=== PATIENT | female | born 1970 | race Hispanic/Latino ===

== ENCOUNTER 2017-02-05 12:16 | Emergency (ER) | payer BC ==
[2017-02-05 12:35] VITALS: BMI 29.7
--- NOTE | 2017-02-05 13:04 | C.PDOC ---
History Of Present Illness 46 y/o female presents to the ED complaining of shaking,and back pain. Patient reports she had a panic attack at work. She reports history of chronic back pain states she was injured over a year ago at work and just started working again in October. She reports that she has been taking Motrin for pain with no relief and is requesting stronger pain medication. Patient also reports that she has history of myasthenia gravis and she sees Dr. Galarza for her medical care. At this time patient denies any weakness, numbness, urinary symptoms, abdominal pain, fever, chills, or other complaints. Time Seen by Provider: 02/05/17 12:41 Chief Complaint (Nursing): Anxiety History Per: Patient History/Exam Limitations: no limitations Onset/Duration Of Symptoms: Mins, Gradual, Persistent Current Symptoms Are (Timing): Still Present Recent travel outside of the [place]: No Past Medical History Reviewed: Historical Data, Nursing Documentation, Vital Signs Vital Signs: Last Vital Signs Temp 98.2 F 02/05/17 14:29 Pulse 80 02/05/17 14:29 Resp 20 02/05/17 14:29 BP 128/84 02/05/17 14:29 Pulse Ox 99 02/05/17 14:37 - Medical History PMH: Back Problems, HTN Other PMH: Myasthenia Gravis Surgical History: Tonsillectomy (1998) Other Surgeries: Hysterectomy - [facility] Procedures INJECT/INFUSE NEC (05/26/05) Family History: States: No Known Family Hx - Social History Hx Tobacco Use: No Hx Alcohol Use: No Hx Substance Use: No - Immunization History Hx Influenza Vaccination: No (Not UTD) Hx Pneumococcal Vaccination: No (Not UTD) Review Of Systems Except As Marked, All Systems Reviewed And Found Negative. Constitutional: Negative for: Fever, Chills Cardiovascular: Negative for: Chest Pain Respiratory: Positive for: Shortness of Breath. Negative for: SOB with Excertion Gastrointestinal: Negative for: Abdominal Pain Genitourinary: Negative for: Dysuria Musculoskeletal: Positive for: Back Pain Neurological: Negative for: Weakness, Numbness Psych: Positive for: Anxiety Physical Exam - Physical Exam Appears: Non-toxic, No Acute Distress, Other (mild hyperventilation) Skin: Normal Color, Warm, Dry Head: Atraumatic, Normacephalic Oral Mucosa: Moist Neck: Normal ROM, Supple Chest: Symmetrical Cardiovascular: Rhythm Regular Respiratory: Normal Breath Sounds, No Rales, No Rhonchi, No Wheezing Gastrointestinal/Abdominal: Normal Exam, Soft, No Tenderness Back: No Vertebral Tenderness, Other (mild paralumbar tenderness) Extremity: Normal ROM, No Swelling Neurological/Psych: Oriented x3, Normal Speech, Normal Cognition, Normal Motor, Normal Sensation ED Course And Treatment ECG: Interpreted By Me ECG Rhythm: Sinus Rhythm ECG Interpretation: No Acute Changes Rate From EC O2 Sat by Pulse Oximetry: 99 (ra) Pulse Ox Interpretation: Normal - Radiology CXR: Interpreted by Me CXR Interpretation: Yes: No Acute Disease Progress Note: treated with toradol 30 mg IV and xanax 0.25 mg PO. On re- evaluation lungs clear, feeling better, in no distress Reassessment Condition: Improved Medical Decision Making Medical Decision Making: Plan: * EKG * CXR * Toradol, Xanax Disposition Counseled Patient/Family Regarding: Studies Performed, Diagnosis, Need For Followup - Disposition Referrals: Rosa Galarza MD [Staff Provider] - Disposition: HOME/ ROUTINE Disposition Time: 14:20 Condition: STABLE Additional Instructions: Follow up with PMD Return to ED if any increase symptoms Instructions: Generalized Anxiety Disorder (ED), Anxiety (ED) - POA Present On Arrival: None - Clinical Impression Clinical Impression: Anxiety - PA / [employer] / Resident Statement MD/DO has reviewed & agrees with the documentation as recorded. - Scribe Statement The provider has reviewed the documentation as recorded by the Scribe (Marely Farley) All medical record entries made by the Scribe were at my direction and personally dictated by me. I have reviewed the chart and agree that the record accurately reflects my personal performance of the history, physical exam, medical decision making, and the department course for this patient. I have also personally directed, reviewed, and agree with the discharge instructions and disposition.
--- NOTE | 2017-02-05 14:09 | RAD ---
HISTORY: Shortness of breath COMPARISON: 03/13/2014 TECHNIQUE: Chest PA and lateral FINDINGS: LUNGS: The lungs are clear of. PLEURA: No significant pleural effusion identified. No pneumothorax apparent. CARDIOVASCULAR: Normal. OSSEOUS STRUCTURES: No significant abnormalities. VISUALIZED UPPER ABDOMEN: Normal. OTHER FINDINGS: None. IMPRESSION: No active pulmonary disease.
[2017-02-05 14:30] VITALS: BP 128/84; PULSE 80; RESP 20; TEMP 98.2
[2017-02-05 14:37] VITALS: O2SAT 99
--- NOTE | 2017-02-06 21:30 | CARD ---
APPROVED REPORT EKG Measurement Heart [id number] IN [id number] [id number] <Conclusion> Normal sinus rhythm Minimal voltage criteria for LVH, may be normal variant Nonspecific T wave abnormality Abnormal ECG
== END 2017-02-05 14:40 | disposition home or self-care (01) ==
LOC: C.ER 12:16
DX: F41.9 Anxiety disorder, unspecified (principal)
CPT/HCPCS: 71020; 93005; 96372; 99283; J1885

== ENCOUNTER 2017-03-10 14:37 | Emergency (ER) | payer BC ==
[2017-03-10 14:37] VITALS: BMI 29.7
[2017-03-10 14:53] VITALS: RESP 18
--- NOTE | 2017-03-10 15:52 | C.PDOC ---
History Of Present Illness A 46 year old female presents, with a past medical history that includes Anxiety , is BIBA with complaints of right sided lower back pain that developed today while working. 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 Patient denies any falls/trauma, fever, chills, abd. pain, nausea, vomiting, diarrhea, dysuria, hematuria, incontinence, saddle anesthesia, denies weakness, sensory or vascular deficist to B/L LEs. At the time of evaluation, appears in pain. 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 Last RX: 03/04/17 Alprazolam 0.5mg#90 by , 02/25/17 Alprazolam 0.25mg#15 , 02/17/17 Zolpidem 10mg#30 , so on. Time Seen by Provider: 03/10/17 15:27 Chief Complaint (Nursing): Back Pain History Per: Patient History/Exam Limitations: no limitations Onset/Duration Of Symptoms: Hrs Current Symptoms Are (Timing): Still Present Quality Of Discomfort: "Pain" Severity: Mild Previous Symptoms: None Associated Symptoms: denies: Incontinence, New Weakness, New Numbness Exacerbating Factor(s): Nothing Recent travel outside of the [place]: No Past Medical History Reviewed: Historical Data, Nursing Documentation, Vital Signs Vital Signs: Last Vital Signs Temp 98.2 F 03/10/17 14:49 Pulse 91 H 03/10/17 14:49 Resp 18 03/10/17 14:49 BP 132/92 H 03/10/17 14:49 Pulse Ox 99 03/10/17 16:11 - Medical History PMH: Back Problems, HTN Surgical History: Tonsillectomy (1998) - [facility] Procedures INJECT/INFUSE NEC (05/26/05) Family History: States: No Known Family Hx - Social History Hx Tobacco Use: No Hx Alcohol Use: No Hx Substance Use: No - Immunization History Hx Influenza Vaccination: No (Not UTD) Hx Pneumococcal Vaccination: No (Not UTD) Review Of Systems Except As Marked, All Systems Reviewed And Found Negative. Constitutional: Negative for: Fever, Chills Cardiovascular: Negative for: Chest Pain Respiratory: Negative for: Shortness of Breath Gastrointestinal: Negative for: Nausea, Vomiting, Abdominal Pain, Diarrhea Genitourinary: Negative for: Dysuria, Frequency, Incontinence, Hematuria Musculoskeletal: Positive for: Back Pain (Right sided lower back pain) Physical Exam - Physical Exam Appears: Well, Non-toxic, No Acute Distress Skin: Normal Color, Warm, Dry, No Rash Head: Atraumatic, Normacephalic Eye(s): bilateral: PERRL Throat: Normal Neck: Normal ROM, Trachea Midline, Supple Gastrointestinal/Abdominal: Soft, No Tenderness, No Distention, No Guarding Back: No Vertebral Tenderness, Muscle Spasm (Right lumbar.), Paraspinal Tenderness (Right lumbar. NO midline tenderness.), Straight Leg Raising (Right leg positive at 60 degrees, Left leg positive at 70 degrees.) Extremity: Normal ROM, No Pedal Edema, No Deformity, No Swelling Neurological/Psych: Oriented x3, Normal Speech, Normal Motor, Normal Sensation, Normal Reflexes ED Course And Treatment O2 Sat by Pulse Oximetry: 99 Pulse Ox Interpretation: Normal - Other Rad L-spine X-Ray: Interpreted by Me, Viewed By Me Interpretation: no acute fx or dislocation Progress Note: On re-eavluation, pt is afebrile, hemodynamicaly stable. Non- toxic. AMbulatory in ED with stable gait. Abd: benign. Back: (-) midline tenderness. Neurologicaly intact. Xray review and appears without acute abnormalities. Pt has clinical findings c/w chronic lower back pain w/acute exacerbation. Pt advised. ref. to F/u with PMD, PM In 2-3 days for re-eavl. return if any new changes. Disposition Counseled Patient/Family Regarding: Studies Performed, Diagnosis, Need For Followup, Rx Given - Disposition Referrals: Rosa Galarza MD [Staff Provider] - Disposition: HOME/ ROUTINE Disposition Time: 17:03 Condition: STABLE Additional Instructions: LIght duty, avoid heavy lifting, bending, etc. Take pain medication as need Follow up with PMD, PM in 2-3 days for re-evaluation and further pain control. Return to ED if any worsening or new changes. Prescriptions: Ibuprofen [Motrin Tab] 600 mg PO Q6 #20 tab traMADol [Ultram] 50 mg PO TID #7 tab Instructions: Chronic Back Pain (ED), Muscle Spasm (ED) Forms: Work Excuse - Clinical Impression Clinical Impression: Low back pain - Scribe Statement The provider has reviewed the documentation as recorded by the Luis Carlos Monreal Provider Scribe Attestation: All medical record entries made by the Luis Carlos were at my direction and personally dictated by me. I have reviewed the chart and agree that the record accurately reflects my personal performance of the history, physical exam, medical decision making, and the department course for this patient. I have also personally directed, reviewed, and agree with the discharge instructions and disposition.
--- NOTE | 2017-03-10 17:16 | RAD ---
PROCEDURE: Radiographs of the Lumbar Spine. HISTORY: pain COMPARISON: None available. FINDINGS: BONES: Alignment appears satisfactory. No listhesis. No acute displaced fracture identified. DISC SPACES: Unremarkable. OTHER FINDINGS: None. IMPRESSION: No acute displaced fracture or subluxation identified.
[2017-03-10 17:37] VITALS: BP 146/107; PULSE 89; TEMP 98.5; O2SAT 95
== END 2017-03-10 17:38 | disposition home or self-care (01) ==
LOC: C.ER 14:37
DX: M54.5 Low back pain (principal)
CPT/HCPCS: 72100; 96372; 99284; J1885